=== PATIENT | female | born 1945 | race Two or more races ===

== ENCOUNTER 2017-09-27 09:37 | Outpatient (CLI) | payer OTHER ==
[~2017-09-27 09:37] MED LIST: VYTORIN 10-20 M1 TAB PO
== END 2017-09-27 10:58 | disposition home or self-care (01) ==
LOC: SONOGRAMA 09:37
DX: E04.2 Nontoxic multinodular goiter (principal)

== ENCOUNTER 2018-11-18 09:59 | Outpatient (CLI) | payer OTHER ==
[~2018-11-18] VITALS: Ht 152.4 cm; Wt 57.2 kg
== END 2018-11-18 10:15 | disposition home or self-care (01) ==
LOC: OFIC 805 09:59
DX: H61.23 Impacted cerumen, bilateral (principal); H90.3 Sensorineural hearing loss, bilateral; J32.8 Other chronic sinusitis; J31.0 Chronic rhinitis; H93.13 Tinnitus, bilateral

== ENCOUNTER 2018-11-22 08:48 | Outpatient (CLI) | payer OTHER | END 2018-11-22 09:20 | disposition home or self-care (01) | LOC: TOM 08:48 | DX: H80.91 Unspecified otosclerosis, right ear (principal) ==

== ENCOUNTER 2018-12-09 08:40 | Outpatient (CLI) | payer OTHER ==
[~2018-12-09] VITALS: Ht 152.4 cm; Wt 57.2 kg
== END 2018-12-09 12:59 | disposition home or self-care (01) ==
LOC: OFIC 805 08:40
DX: H80.91 Unspecified otosclerosis, right ear (principal)

== ENCOUNTER 2019-03-03 08:07 | Outpatient (CLI) | payer OTHER ==
[~2019-03-03] VITALS: Ht 152.4 cm; Wt 56.7 kg
== END 2019-03-03 09:00 | disposition home or self-care (01) ==
LOC: OFIC 805 08:07
DX: J31.0 Chronic rhinitis (principal); J32.8 Other chronic sinusitis; H90.3 Sensorineural hearing loss, bilateral; K21.9 Gastro-esophageal reflux disease without esophagitis; J31.2 Chronic pharyngitis

== ENCOUNTER 2019-10-09 11:31 | Outpatient (CLI) | payer OTHER ==
[2019-10-09] MEDS ORDERED: FLONASE16 GM NASAL (12:33)
[2019-10-09] MEDS ORDERED: SINGULAIR10 MG PO (12:34)
[2019-10-09] MEDS ORDERED: PRILOSEC OTC20 MG PO (12:34)
[2019-10-09] MEDS ORDERED: PEPCID AC20 MG PO (12:34)
[2019-10-09] MEDS ORDERED: ZYRTEC10 M3 PO (12:34)
== END 2019-10-09 14:28 | disposition home or self-care (01) ==
LOC: OFIC 805 11:31
PROVIDERS: ATTEND Otolaryngology
DX: J31.0 Chronic rhinitis (principal); H93.13 Tinnitus, bilateral; K21.9 Gastro-esophageal reflux disease without esophagitis; J32.8 Other chronic sinusitis; H61.23 Impacted cerumen, bilateral; H90.3 Sensorineural hearing loss, bilateral

== ENCOUNTER 2019-11-13 10:42 | Outpatient (CLI) | payer OTHER ==
[~2019-11-13 10:42] MED LIST changes: +FLONASE16 GM NASAL; +PEPCID AC20 MG PO; +PRILOSEC OTC20 MG PO; +SINGULAIR10 MG PO; +ZYRTEC10 M3 PO
[2019-11-13] MEDS ORDERED: ZYRTEC10 M3 PO (11:39)
[2019-11-13] MEDS ORDERED: FLONASE16 GM NASAL (11:40)
[2019-11-13] MEDS ORDERED: PEPCID AC20 MG PO (11:40)
== END 2019-11-13 16:43 | disposition home or self-care (01) ==
LOC: OFIC 805 10:42
PROVIDERS: ATTEND Otolaryngology
DX: K21.9 Gastro-esophageal reflux disease without esophagitis (principal); H93.13 Tinnitus, bilateral; J02.8 Acute pharyngitis due to other specified organisms

== ENCOUNTER → 2020-02-15 | Outpatient (CLI) | payer OTHER | END | disposition home or self-care (01) | LOC: OFIC 805 10:15 | PROVIDERS: ATTEND Otolaryngology | DX: K21.9 Gastro-esophageal reflux disease without esophagitis (principal); R09.89 Other specified symptoms and signs involving the circulatory and respiratory systems ==

== ENCOUNTER 2020-05-16 10:09 | Outpatient (CLI) | payer OTHER | END 2020-05-16 18:10 | disposition home or self-care (01) | LOC: OFIC 805 10:09 | PROVIDERS: ATTEND Otolaryngology | DX: R09.89 Other specified symptoms and signs involving the circulatory and respiratory systems (principal); K21.9 Gastro-esophageal reflux disease without esophagitis; J02.8 Acute pharyngitis due to other specified organisms ==

== ENCOUNTER 2022-08-03 08:52 | Outpatient (CLI) | payer OTHER | END 2022-08-03 08:57 | disposition home or self-care (01) | LOC: SONOGRAMA 08:52 | PROVIDERS: ATTEND Pathology Anatomic Pathology & Clinical Pathology | DX: D34 Benign neoplasm of thyroid gland (principal); E04.9 Nontoxic goiter, unspecified ==